=== PATIENT | female | born 1965 | race Caucasian/White ===

== ENCOUNTER 2022-09-10 12:05 | Emergency (ER) | payer OTHER ==
[~2022-09-10] VITALS: Ht 167 cm; Wt 103.0 kg
--- NOTE | 2022-09-10 12:25 | ED Headache ---
General Chief Complaint: Head/Cervical Problems Stated Complaint: HEADACHE | HIT ON HEAD 6-8 WEEKS AGO Nursing Triage Note: PT AMB TO RM 6. PT STATES HAD HEAD INJURY 6-8 WEEKS AGO, PT WAS SEEN BY [facility] ED AND HAD CT STATES WAS A BAD CONCUSSION. Source: patient Exam Limitations: no limitations History of Present Illness Date Seen by Provider: Sep 10, 2022 Time Seen by Provider: 12:22 Initial Comments Patient is a 57-year-old female with a history of fibromyalgia, hypertension, ulcerative colitis, lupus who presents the ED for headache and concussive likes symptoms. Patient states 6 to 8 weeks ago she suffered a head injury. She fell had boxes and several items fall on the top part of her head. She had no loss of consciousness. She developed headache dizziness lightheadedness after the injury. Patient Was seen at [facility] had a negative CT scan of her head. Since then she has had continuous daily headaches. Pain is described as pressure fairly constant with intermittent sharp pain. Patient states she has a history of headaches behind her left eye. She states this feels different. Patient reports nausea with episode of vomiting while at work today. denies of any unilateral muscle weakness or sensory changes. She states she has been taken Advil and Tylenol daily without much improvement. She contacted her primary care physician and was recommended come to ED. She states since then her blood pressure has been increased in her head but believes this is secondary to the pain. She is not on blood thinners. Denies of any bowel or urine cons, saddle paresthesia, unilateral muscle weakness or sensory changes. Currently taking amlodipine, losartan. Allergies and Home Medications Allergies Coded Allergies: Sulfa (Sulfonamide Antibiotics) (Verified Allergy, Unknown, 09/10/22) Patient Home Medication List Home Medication List Reviewed: Yes Butalb/Acetaminophen/Caffeine (Yrhfka-Yfvnsogk-Ubar 50-325-40) 50 Mg-325 Mg-40 Mg Tablet, 1 EACH PO Q4H Prescribed by: CARO BENITEZ on 09/10/22 1341 Prochlorperazine Maleate (Compazine) 10 Mg Tablet, 10 MG PO Q8H Prescribed by: CARO BENITEZ on 09/10/22 1350 Review of Systems Review of Systems Constitutional: No chills, No diaphoresis Eyes: Denies Blurred Vision, Denies Drainage, Denies Decreased Acuity Ears, Nose, Mouth, Throat: denies ear pain, denies ear discharge Respiratory: No cough, No dyspnea on exertion Cardiovascular: No chest pain Gastrointestinal: No abdominal pain; nausea, vomiting Musculoskeletal: No back pain, No joint pain Skin: No change in color, No change in hair/nails Psychiatric/Neurological: Headache All Other Systems Reviewed Negative Unless Noted: Yes Physical Exam Vital Signs Vital Signs - First Documented 09/10/22 12:15 Temp 36.0 Pulse 92 Resp 16 B/P (MAP) 180/99 (126) Pulse Ox 100 Capillary Refill : Less Than 3 Seconds Height, Weight, BMI Height: '" Weight: lbs. oz. kg; 36.00 BMI Method: General Appearance: WD/WN, no apparent distress HEENT: PERRL/EOMI, normal ENT inspection, TMs normal, pharynx normal Neck: non-tender, full range of motion Cardiovascular: regular rate, rhythm, no edema, no gallop, no JVD Respiratory: chest non-tender, lungs clear, normal breath sounds, no respiratory distress, no accessory muscle use Gastrointestinal: normal bowel sounds, non tender, soft, no organomegaly Back: normal inspection, no CVA tenderness Extremities: normal range of motion, non-tender, normal inspection, no pedal edema, no calf tenderness Psychiatric: alert, oriented x 3 Crainal Nerves: normal hearing, normal speech, PERRL Coordination/Gait: normal finger to nose, normal gait Motor/Sensory: no motor deficit, no sensory deficit, no pronator drift Skin: normal color, warm/dry Progress/Results/Core Measures Results/Orders Lab Results Laboratory Tests Test 09/10/22 12:50 Range/Units White Blood Count 7.3 4.3-11.0 10^3/uL Red Blood Count 4.31 3.80-5.11 10^6/uL Hemoglobin 12.9 11.5-16.0 g/dL Hematocrit 39 35-52 % Mean Corpuscular Volume 91 80-99 fL Mean Corpuscular Hemoglobin 30 25-34 pg Mean Corpuscular Hemoglobin Concent 33 32-36 g/dL Red Cell Distribution Width 12.9 10.0-14.5 % Platelet Count 290 130-400 10^3/uL Mean Platelet Volume 9.9 9.0-12.2 fL Immature Granulocyte % (Auto) 0 % Neutrophils (%) (Auto) 74 42-75 % Lymphocytes (%) (Auto) 17 12-44 % Monocytes (%) (Auto) 7 0-12 % Eosinophils (%) (Auto) 2 0-10 % Basophils (%) (Auto) 0 0-10 % Neutrophils # (Auto) 5.4 1.8-7.8 10^3/uL Lymphocytes # (Auto) 1.2 1.0-4.0 10^3/uL Monocytes # (Auto) 0.5 0.0-1.0 10^3/uL Eosinophils # (Auto) 0.1 0.0-0.3 10^3/uL Basophils # (Auto) 0.0 0.0-0.1 10^3/uL Immature Granulocyte # (Auto) 0.0 0.0-0.1 10^3/uL Sodium Level 139 135-145 MMOL/L Potassium Level 4.0 3.6-5.0 MMOL/L Chloride Level 103 98-107 MMOL/L Carbon Dioxide Level 23 21-32 MMOL/L Anion Gap 13 5-14 MMOL/L Blood Urea Nitrogen 15 7-18 MG/DL Creatinine 0.83 0.60-1.30 MG/DL Estimat Glomerular Filtration Rate 82 BUN/Creatinine Ratio 18 Glucose Level 146 H 70-105 MG/DL Calcium Level 9.8 8.5-10.1 MG/DL Corrected Calcium 9.6 8.5-10.1 MG/DL Total Bilirubin 0.5 0.1-1.0 MG/DL Aspartate Amino Transf (AST/SGOT) 19 5-34 U/L Alanine Aminotransferase (ALT/SGPT) 21 0-55 U/L Alkaline Phosphatase 109 40-136 U/L Total Protein 7.8 6.4-8.2 GM/DL Albumin 4.3 3.2-4.5 GM/DL My Orders Orders - FANTA BASHIR Cbc With Automated Diff (09/10/22 12:36) Comprehensive Metabolic Panel (09/10/22 12:36) Ns Iv 1000 Ml (Sodium Chloride 0.9%) (09/10/22 12:36) Ketorolac Injection (Toradol Injection) (09/10/22 12:45) Diphenhydramine Injection (Diphenhydram (09/10/22 12:45) Prochlorperazine Injection (Compazine In (09/10/22 12:45) Medications Given in ED Current Medications Medications Dose Ordered Sig/Jose Route Start Time Stop Time Status Last Admin Dose Admin Diphenhydramine HCl 25 mg ONCE ONCE IVP 09/10/22 12:45 09/10/22 12:46 DC 09/10/22 12:47 25 MG Ketorolac Tromethamine 30 mg ONCE ONCE IVP 09/10/22 12:45 09/10/22 12:46 DC 09/10/22 12:47 30 MG Prochlorperazine Edisylate 10 mg ONCE ONCE IV 09/10/22 12:45 09/10/22 12:46 DC 09/10/22 12:47 10 MG Vital Signs/I&O 09/10/22 09/10/22 12:15 14:26 Temp 36.0 Pulse 92 68 Resp 16 16 B/P (MAP) 180/99 (126) 123/75 Pulse Ox 100 100 Blood Pressure Mean: 126 Departure Communication (PCP) Patient presents ED with concussion-like symptoms. This all occurred after head injury 2 months ago. She was seen at [facility] had a CT scan after the injury which was unremarkable. Since then she has had daily headaches with nausea, vomiting, difficulty concentrating and focusing. She has been working during the symptoms. Patient on arrival no acute distress. Vital signs stable. No neurological deficits. She is not on blood thinners. She has no cervical midline tenderness. She states boxes of items fell on the top part of her head when she fell. She had episode of vomiting today with the headache rated 7 out of 10 located top of her head while at work. Denies syncope. denies worst headache of her life. She was hypertensive currently on amlodipine and losartan. She has no chest pain or shortness of breath. No extremity swelling. Concerning for persistent postconcussive syndrome. Discussed options with patient at this time. Since she has no neurological deficits I do not think emergent imaging is needed at this time. Since symptoms have been persistent she would likely benefit with an outpatient MRI. Did offer her a migraine cocktail which was offered with improvement of her symptoms. Discussed with patient she needs to avoid strenuous activities or anything that exacerbates her symptoms. She states she needs to continue to work. Discussed with patient this may continue worsening her symptoms. Did offer concussion clinic at [facility] and provided a number to contact. Symptomatic treatment at this time. We will provide Compazine for nausea per her request. Return precaution were discussed with patient. Improvement of blood pressure. Impression Primary Impression: Concussion syndrome Disposition: 01 HOME, SELF-CARE Condition: Stable Departure-Patient Inst. Decision time for Depature: 13:40 Referrals: JAZMINE OLIVO DO (PCP/Family) Primary Care Physician Patient Instructions: Post-Concussion Syndrome ED Add. Discharge Instructions: Recommend follow-up your primary care physician for further evaluation. Recommend following up with neurology. Concussion clinic at [phone] All discharge instructions reviewed with patient and/or family. Voiced understanding. Scripts Prochlorperazine Maleate (Compazine) 10 Mg Tablet 10 MG PO Q8H, #8 TAB Prov: FANTA BASHIR 09/10/22 Butalb/Acetaminophen/Caffeine (Glgdeu-Eqbnwlxm-Utet 50-325-40) 50 Mg-325 Mg-40 Mg Tablet 1 EACH PO Q4H, #6 TAB Prov: FANTA BASHIR 09/10/22 FANTA BASHIR Sep 10, 2022 12:25
[2022-09-10] MEDS ORDERED: NS IV 1000 ML 1,000 ML IV STA (12:36)
[2022-09-10] MEDS ORDERED: diphenhydrAMINE INJ 50 MG/ML VIAL IVP ONE (12:45)
[2022-09-10] MEDS ORDERED: PROCHLORPERAZINE 10 MG/2ML INJ (COMPAZINE) IV ONE (12:45)
[2022-09-10] MEDS ORDERED: KETOROLAC 30 MG/ML VIAL IVP ONE (12:45)
[2022-09-10 13:01] LABS: BASOPHILS % (AUTO) 0 % (0-10); EOSINOPHILS # (AUTO) 0.1 10^3/uL (0.0-0.3); EOSINOPHILS % (AUTO) 2 % (0-10); HEMATOCRIT 39 % (35-52); HEMOGLOBIN 12.9 g/dL (11.5-16.0); LYMPHOCYTES # (AUTO) 1.2 10^3/uL (1.0-4.0); LYMPHOCYTES % (AUTO) 17 % (12-44); MEAN CORPUSCULAR HEMOGLOBIN 30 pg (25-34); MEAN CORPUSCULAR HGB CONC 33 g/dL (32-36); MEAN CORPUSCULAR VOLUME 91 fL (80-99); MEAN PLATELET VOLUME 9.9 fL (9.0-12.2); MONOCYTES # (AUTO) 0.5 10^3/uL (0.0-1.0); MONOCYTES % (AUTO) 7 % (0-12); NEUTROPHILS # (AUTO) 5.4 10^3/uL (1.8-7.8); NEUTROPHILS % (AUTO) 74 % (42-75); PLATELET COUNT 290 10^3/uL (130-400); WHITE BLOOD COUNT 7.3 10^3/uL (4.3-11.0)
[2022-09-10 13:23] LABS: ALBUMIN 4.3 GM/DL (3.2-4.5)
[2022-09-10 13:25] LABS: CALCIUM 9.8 MG/DL (8.5-10.1)
[2022-09-10 13:26] LABS: TOTAL PROTEIN 7.8 GM/DL (6.4-8.2)
[2022-09-10 13:28] LABS: BILIRUBIN,TOTAL 0.5 MG/DL (0.1-1.0)
[2022-09-10 13:29] LABS: CREATININE SERUM 0.83 MG/DL (0.60-1.30)
[2022-09-10] MEDS ORDERED: BUTA-235 PO (13:41)
[2022-09-10] MEDS ORDERED: PROC-1 PO (13:50)
[2022-09-10 14:26] VITALS: BP 123/75
== END 2022-09-10 14:26 | disposition home or self-care (01) ==
LOC: EDUNIT# 12:05 → ER 12:12
DX: S06.0X0A Concussion without loss of consciousness, initial encounter (principal); I10 Essential (primary) hypertension; Z79.899 Other long term (current) drug therapy; W20.8XXA Other cause of strike by thrown, projected or falling object, initial encounter; Y92.59 Other trade areas as the place of occurrence of the external cause; Y99.0 Civilian activity done for income or pay
CPT/HCPCS: 36415; 80053; 85025; 96361; 96374; 96375; 99281